=== PATIENT | female | born 1970 | race American Indian/Alaskan Native ===

== ENCOUNTER 2018-07-04 20:13 | Emergency (ER) | payer BC ==
--- NOTE | 2018-07-05 | Emergency Department Report ---
ED Headache HPI - General Chief Complaint: Headache Stated Complaint: HEADACHE Time Seen by Provider: 07/05/18 00:00 - History of Present Illness Allergies/Adverse Reactions: Allergies Penicillins Allergy (Verified 01/27/15 01:40) Unknown Home Medications: Ambulatory Orders Famotidine [Pepcid] 20 mg PO BID #10 tablet 01/27/15 Naproxen [Naprosyn TAB] 500 mg PO BID #60 tablet 01/27/15 Clonidine HCl [Kapvay] 0.1 mg PO BID #60 tab.er.12h 07/05/18 ED Review of Systems ROS: Stated complaint: HEADACHE Other details as noted in HPI ED Past Medical Hx - Past Medical History Previous Medical History?: No Hx Headaches / Migraines: Yes - Surgical History Past Surgical History?: Yes Additional Surgical History: carpal tunnel - Social History Smoking Status: Current Every Day Smoker Substance Use Type: None - Medications Home Medications: Home Medications Medication Instructions Recorded Confirmed Last Taken Type Famotidine [Pepcid] 20 mg PO BID #10 tablet 01/27/15 Unknown Rx Naproxen [Naprosyn TAB] 500 mg PO BID #60 tablet 01/27/15 Unknown Rx Clonidine HCl [Kapvay] 0.1 mg PO BID #60 tab.er.12h 07/05/18 Unknown Rx ED Physical Exam - General Limitations: No Limitations ED Course Vital Signs 07/04/18 07/05/18 07/05/18 20:17 00:40 00:48 Temperature 98.8 F 98.2 F Pulse Rate 93 H 75 Respiratory 18 16 Rate Blood Pressure 164/105 Blood Pressure 174/106 [Left] O2 Sat by Pulse 98 98 98 Oximetry 07/05/18 07/05/18 07/05/18 01:00 01:07 01:30 Temperature Pulse Rate 74 Respiratory Rate Blood Pressure 164/104 164/104 164/104 Blood Pressure [Left] O2 Sat by Pulse 99 99 Oximetry 07/05/18 02:00 Temperature Pulse Rate Respiratory Rate Blood Pressure 98/61 Blood Pressure [Left] O2 Sat by Pulse 98 Oximetry ED Medical Decision Making - Lab Data Result diagrams: 07/05/18 00:18 07/05/18 00:18 Critical care attestation.: If time is entered above; I have spent that time in minutes in the direct care of this critically ill patient, excluding procedure time. ED Disposition Clinical Impression: Hypertension Qualifiers: Hypertension type: unspecified Qualified Code(s): I10 - Essential (primary) hypertension Headache Qualifiers: Headache type: unspecified Headache chronicity pattern: unspecified pattern Intractability: not intractable Qualified Code(s): R51 - Headache Disposition: DC-01 TO HOME OR SELFCARE Is pt being admited?: No Does the pt Need Aspirin: No Condition: Stable Instructions: Hypertension (ED), Acute Headache (ED) Additional Instructions: Please follow up with your primary doctor or Dr Cr on Saturday. Return to the ED if your condition worsens. Prescriptions: Clonidine HCl [Kapvay] 0.1 mg PO BID #60 tab.er.12h Referrals: PRIMARY CARE, [Primary Care Provider] - 3-5 Days EDWIN CR DO [Staff Physician] - 3-5 Days Time of Disposition: 04:00
[2018-07-05] MEDS ORDERED: REGLAN IV ONE (00:13)
[2018-07-05] MEDS ORDERED: CATAPRES PO ONE (00:14)
[2018-07-05] MEDS ORDERED: TYLENOL PO ONE (00:31)
[2018-07-05 00:44] LABS: Basophils % (Auto) 0.8 % (0.0-1.8); Eosinophils # (Auto) 0.4 K/mm3 (0.0-0.4); Eosinophils % (Auto) 6.5 % (0.0-4.3); Lymphocytes % (Auto) 34.4 % (13.4-35.0); Mean Corpuscular HGB Conc 30 % (30-34); Mean Corpuscular Volume 77 fl (79-97); Monocytes # (Auto) 0.5 K/mm3 (0.0-0.8); Monocytes % (Auto) 8.6 % (0.0-7.3); Platelet Count 343 K/mm3 (140-440); Red Blood Count 4.52 M/mm3 (3.65-5.03); Red Cell Distribution Width 17.6 % (13.2-15.2)
[2018-07-05 00:47] LABS: Hematocrit 34.7 % (30.3-42.9); Hemoglobin 10.5 gm/dl (10.1-14.3); Mean Corpuscular Hemoglobin 23 pg (28-32)
[2018-07-05 00:55] LABS: INR 0.88 (0.87-1.13); Partial Thromboplastin Time 25.6 Sec. (24.2-36.6)
[2018-07-05 01:00] LABS: Alanine Aminotransferase 14 units/L (7-56); Albumin 4.4 g/dL (3.9-5); BUN/Creatinine Ratio 27; Blood Urea Nitrogen 16 mg/dL (7-17); Calcium 9.5 mg/dL (8.4-10.2); Hemolysis Index 6
[2018-07-05] MEDS ORDERED: K-DUR PO ONE (01:13)
[2018-07-05 01:40] LABS: Amorphous Crystals,Urine 1+; Bilirubin,Urine NEG (Negative); Blood,Urine NEG (Negative); Color,Urine Yellow (Yellow); Mucus,Urine 1+ /HPF; Protein,Urine <15 mg/dL mg/dL (Negative)
[2018-07-05 01:46] LABS: HCG Qualitative,Urine Negative (Negative)
--- NOTE | 2018-07-05 03:42 | Cat Scan Report ---
FINAL REPORT PROCEDURE: CT HEAD/BRAIN WO CON TECHNIQUE: Computerized tomography of the head was performed without contrast material. HISTORY: Headache COMPARISON: No prior studies are available for comparison. FINDINGS: Skull and scalp: Normal. Paranasal sinuses: Normal. Ventricles and subarachnoid spaces: Normal. Cerebrum: No evidence of hemorrhage, acute infarction or mass . Cerebellum and brainstem: No evidence of hemorrhage, acute infarction or mass. Vasculature: Normal. Comments: None. IMPRESSION: Normal Examination
[2018-07-05 04:03] VITALS: BP 129/88
== END 2018-07-05 04:12 | disposition home or self-care (01) ==
LOC: ED 20:13
DX: I10 Essential (primary) hypertension (principal); G43.909 Migraine, unspecified, not intractable, without status migrainosus; F17.200 Nicotine dependence, unspecified, uncomplicated; Z79.899 Other long term (current) drug therapy; Z88.0 Allergy status to penicillin
CPT/HCPCS: 36415; 70450; 80053; 81001; 81025; 85025; 85610; 85730; 99284; J2765; 96374

== ENCOUNTER 2020-03-28 18:55 | Emergency (ER) | payer BC, MEDICAID ==
[2020-03-28 19:17] VITALS: BP 141/92
--- NOTE | 2020-03-28 20:08 | Event Note ---
ED Screening Note Date of service: 03/28/20 Time: 20:06 ED Screening Note: Patient complains of abdominal bloating and discomfort x this morning She denies any fever/chills/sweats or history of abdominal surgeries She states the pain radiates to her right flank there is mild positive right CVA tenderness on exam She denies any dysuria/hematuria/urinary frequency or history of kidney stones This initial assessment/diagnostic orders/clinical plan/treatment(s) is/are subject to change based on patients health status, clinical progression and re- assessment by fellow clinical providers in the ED. Further treatment and workup at subsequent clinical providers discretion. Patient/guardian urged not to elope from the ED as their condition may be serious if not clinically assessed and managed. Initial orders include: Labs
[2020-03-28 20:45] LABS: Basophils # (Auto) 0.1 K/mm3 (0.0-0.1); Basophils % (Auto) 1.1 % (0.0-1.8); Eosinophils # (Auto) 0.3 K/mm3 (0.0-0.4); Eosinophils % (Auto) 4.5 % (0.0-4.3); Hematocrit 42.3 % (30.3-42.9); Hemoglobin 14.5 gm/dl (10.1-14.3); Lymphocytes # (Auto) 1.8 K/mm3 (1.2-5.4); Mean Corpuscular HGB Conc 34 % (30-34); Mean Corpuscular Volume 92 fl (79-97); Monocytes # (Auto) 0.5 K/mm3 (0.0-0.8); Monocytes % (Auto) 8.6 % (0.0-7.3); Platelet Count 272 K/mm3 (140-440); Red Blood Count 4.62 M/mm3 (3.65-5.03); Red Cell Distribution Width 13.4 % (13.2-15.2)
[2020-03-28 21:08] LABS: Bacteria,Urine 1+ /HPF (Negative); Bilirubin,Urine NEG (Negative); Blood,Urine NEG (Negative); Color,Urine Yellow (Yellow); Mucus,Urine FEW /HPF; Protein,Urine <15 mg/dL mg/dL (Negative); Urobilinogen,Urine < 2.0 mg/dL (<2.0)
[2020-03-28 21:25] LABS: Alanine Aminotransferase 13 units/L (7-56); Albumin 4.6 g/dL (3.9-5); BUN/Creatinine Ratio 17; Blood Urea Nitrogen 12 mg/dL (7-17); Calcium 10.5 mg/dL (8.4-10.2); Hemolysis Index 5
--- NOTE | 2020-03-28 21:33 | Emergency Department Report ---
ED General Adult HPI - General Chief complaint: Abdominal Pain Stated complaint: STOMACH PAIN Time Seen by Provider: 03/28/20 20:02 Source: patient Mode of arrival: Ambulatory Limitations: No Limitations - History of Present Illness Initial comments: 49-year-old -[place] female presents to the emergency room for 1 day history of abdominal bloating and tightness denies any pain. Patient reports her last bowel movement was yesterday. She denies any nausea no vomiting denies feeling sick. She denies any dysuria fever chills or vaginal discharge or vaginal bleeding. Patient does admit to eating cabbage yesterday. Patient has a past medical history of hypertension and hypothyroidism. Patient is currently on amlodipine and levothyroxine. Patient's had a tubal ligation and reports she is in menopause. -: This morning Location: abdomen Radiation: non-radiation Severity scale (0 -10): 7 Quality: other (Bloating and tightness) Improves with: none Worsens with: none Associated Symptoms: denies other symptoms Treatments Prior to Arrival: none - Related Data Home Medications Medication Instructions Recorded Confirmed Last Taken Levothyroxine [Synthroid] 50 mcg PO QAM 09/16/18 09/16/18 09/15/18 amLODIPine [Norvasc] 10 mg PO DAILY 09/16/18 09/16/18 09/15/18 Previous Rx's Medication Instructions Recorded Last Taken Type Polyethylene Glycol 3350 [Miralax] 17 gm PO DAILY #119 gram 03/28/20 Unknown Rx Allergies Allergy/AdvReac Type Severity Reaction Status Date / Time Penicillins Allergy Unknown Verified 01/27/15 01:40 ED Review of Systems ROS: Stated complaint: STOMACH PAIN Other details as noted in HPI Comment: All other systems reviewed and negative ED Past Medical Hx - Past Medical History Previous Medical History?: Yes Hx Hypertension: Yes Hx Headaches / Migraines: Yes Additional medical history: Anemia. Hypothyroid - Surgical History Past Surgical History?: Yes Additional Surgical History: carpal tunnel. tubal ligation - Social History Smoking Status: Never Smoker - Medications Home Medications: Home Medications Medication Instructions Recorded Confirmed Last Taken Type Levothyroxine [Synthroid] 50 mcg PO QAM 09/16/18 09/16/18 09/15/18 History amLODIPine [Norvasc] 10 mg PO DAILY 09/16/18 09/16/18 09/15/18 History Polyethylene Glycol 3350 [Miralax] 17 gm PO DAILY #119 gram 03/28/20 Unknown Rx ED Physical Exam - General Limitations: No Limitations General appearance: alert, in no apparent distress - Head Head exam: Present: atraumatic, normocephalic - Eye Eye exam: Present: normal appearance - ENT ENT exam: Present: mucous membranes moist - Neck Neck exam: Present: normal inspection - Respiratory Respiratory exam: Present: normal lung sounds bilaterally. Absent: respiratory distress - Cardiovascular Cardiovascular Exam: Present: regular rate, normal rhythm. Absent: systolic murmur, diastolic murmur, rubs, gallop - GI/Abdominal GI/Abdominal exam: Present: soft, normal bowel sounds - Extremities Exam Extremities exam: Present: normal inspection - Back Exam Back exam: Present: normal inspection - Neurological Exam Neurological exam: Present: alert, oriented X3 - Psychiatric Psychiatric exam: Present: normal affect, normal mood - Skin Skin exam: Present: warm, dry, intact, normal color. Absent: rash ED Course Vital Signs 03/28/20 03/28/20 19:16 20:03 Temperature 98.2 F 98.9 F Pulse Rate 82 79 Respiratory 16 18 Rate Blood Pressure 141/92 141/92 O2 Sat by Pulse 98 100 Oximetry ED Medical Decision Making - Lab Data Result diagrams: 03/28/20 20:13 03/28/20 20:13 Laboratory Tests 03/28/20 03/28/20 03/28/20 20:13 20:13 Unknown WBC 5.8 RBC 4.62 Hgb 14.5 H Hct 42.3 MCV 92 MCH 32 MCHC 34 RDW 13.4 Plt Count 272 Lymph % (Auto) 32.0 [place] % (Auto) 8.6 H Eos % (Auto) 4.5 H Baso % (Auto) 1.1 Lymph # 1.8 [place] # 0.5 Eos # 0.3 Baso # 0.1 Seg Neutrophils % 53.8 Seg Neutrophils # 3.1 Sodium 142 Potassium 3.9 Chloride 103.9 Carbon Dioxide 26 Anion Gap 16 BUN 12 Creatinine 0.7 Estimated GFR > 60 BUN/Creatinine Ratio 17 Glucose 93 Calcium 10.5 H Total Bilirubin 0.40 AST 19 ALT 13 Alkaline Phosphatase 86 Total Protein 8.1 Albumin 4.6 Albumin/Globulin Ratio 1.3 Lipase 28 Urine Color Yellow Urine Turbidity Clear Urine pH 5.0 Ur Specific [place] 1.017 Urine Protein <15 mg/dl Urine Glucose (UA) Neg Urine Ketones Neg Urine Blood Neg Urine Nitrite Neg Urine Bilirubin Neg Urine Urobilinogen < 2.0 Ur Leukocyte Esterase Neg Urine WBC (Auto) 1.0 Urine RBC (Auto) 2.0 U Epithel Cells (Auto) 7.0 Urine Bacteria (Auto) 1+ Urine Mucus Few - Radiology Data Radiology results: report reviewed Referring Physician:BASHIR WILEYPatient Name:ANJEL THOMASHPatient ID:[id number] of :[id number]:FemaleAccession:[id number] Date:[id number] Status:Finalized Findings [facility] [address] [place] [address] XRay Report Signed Patient: ANJEL SCHAEFFER MR#: [id number] : 1970 Acct:[id number] Age/Sex: 49 / F ADM Date: 03/28/20 Loc: ED Attending Dr: Ordering Physician: GEOVANNI MARINELLI Date of Service: 03/28/20 Procedure(s): XR abdomen 1V ap Accession Number(s): [id number] cc: GEOVANNI MARINELLI Fluoro Time In Minutes: ABDOMEN AP SUPINE 2153 INDICATION: Abdominal bloating and tightness COMPARISON: None available. FINDINGS: No evidence of bowel obstruction is seen. Calcification of the pelvis probably are vascular. Possible mild right-sided constipation is noted. Signer Name: Mario Hensley MD Signed: 03/28/2020 10:11 PM Workstation Name: [id number] Transcribed By: GJ Dictated By: Mario Hensley MD Electronically Authenticated By: Mario Hensley MD Signed Date/Time: 03/28/202210 DD/ 10 TD/TT: - Medical Decision Making 49-year-old -[place] female presents to the emergency room for 1 day history of abdominal bloating and tightness denies any pain. Patient reports her last bowel movement was yesterday. She denies any nausea no vomiting denies feeling sick. She denies any dysuria fever chills or vaginal discharge or vaginal bleeding. Patient does admit to eating cabbage yesterday. Patient has a past medical history of hypertension and hypothyroidism. Patient is currently on amlodipine and levothyroxine. Patient's had a tubal ligation and reports she is in menopause. KUB shows mild constipation on the right. Labs are stable. Patient be discharged home on MiraLAX. Critical care attestation.: If time is entered above; I have spent that time in minutes in the direct care of this critically ill patient, excluding procedure time. ED Disposition Clinical Impression: Constipation Qualifiers: Constipation type: unspecified constipation type Qualified Code(s): K59.00 - Constipation, unspecified Disposition: - TO HOME OR SELFCARE Is pt being admited?: No Does the pt Need Aspirin: No Condition: Stable Instructions: Abdominal Pain (ED), Constipation (ED) Additional Instructions: Use MiraLAX as prescribed until you start having normal bowel movements. And then as needed. Follow-up with your primary care provider. X-ray showed you have constipation. All labs are stable. Prescriptions: Polyethylene Glycol 3350 [Miralax] 17 gm PO DAILY #119 gram Referrals: PRIMARY CARE, [Primary Care Provider] - 3-5 Days
--- NOTE | 2020-03-28 22:16 | XRay Report ---
ABDOMEN AP SUPINE 2152 INDICATION: Abdominal bloating and tightness COMPARISON: None available. FINDINGS: No evidence of bowel obstruction is seen. Calcification of the pelvis probably are vascular . Possible mild right-sided constipation is noted. Signer Name: Mario Hensley MD Signed: 03/28/2020 10:11 PM Workstation Name: [id number]
== END 2020-03-28 22:31 | disposition home or self-care (01) ==
LOC: ED 18:55
DX: K59.00 Constipation, unspecified (principal); I10 Essential (primary) hypertension; G43.909 Migraine, unspecified, not intractable, without status migrainosus; Z98.51 Tubal ligation status; Z98.890 Other specified postprocedural states; Z79.899 Other long term (current) drug therapy; Z88.0 Allergy status to penicillin
CPT/HCPCS: 36415; 74018; 80053; 81001; 83690; 85025

== ENCOUNTER 2020-10-09 19:00 | Emergency (ER) | payer MEDICAID ==
[2020-10-09 20:11] VITALS: BP 119/83
--- NOTE | 2020-10-09 20:17 | Emergency Department Report ---
- General Chief Complaint: Dyspnea/Respdistress Stated Complaint: CHEST CONGESTION Time Seen by Provider: 10/09/20 20:09 Source: patient Mode of arrival: Ambulatory Limitations: No Limitations - History of Present Illness Initial Comments: Patient is a 50-year-old female presents emergency room with complaints of chest congestion that began 2 days ago. She has associated cough, fatigue, chest discomfort after frequent coughing. She denies any fever, nausea, vomiting, diarrhea, shortness of breath, leg swelling, body aches. She denies any recent surgery, hormone use, sick contacts. She states that she has not received COVID-19 testing. She states that she did go to a [facility] in [place]. She has a past medical history of hypertension and hypothyroidism. Allergy to penicillin. She is currently menopausal. she states she has been taking dayquil. - Related Data Home Medications Medication Instructions Recorded Confirmed Last Taken Levothyroxine [Synthroid] 50 mcg PO QAM 09/16/18 09/16/18 09/15/18 amLODIPine [Norvasc] 10 mg PO DAILY 09/16/18 09/16/18 09/15/18 Previous Rx's Medication Instructions Recorded Last Taken Type Polyethylene Glycol 3350 [Miralax] 17 gm PO DAILY #119 gram 03/28/20 Unknown Rx Benzonatate [Tessalon Perles] 100 mg PO Q8HR PRN #12 capsule 10/09/20 Unknown Rx Naproxen [EC-Naproxen] 500 mg PO BID PRN #14 tablet.dr 10/09/20 Unknown Rx guaiFENesin ER [Mucinex ER] 600 mg PO BID 7 Days #14 tablet.er 10/09/20 Unknown Rx Allergies Allergy/AdvReac Type Severity Reaction Status Date / Time Penicillins Allergy Unknown Verified 01/27/15 01:40 ED Review of Systems ROS: Stated complaint: CHEST CONGESTION Other details as noted in HPI Comment: All other systems reviewed and negative ED Past Medical Hx - Past Medical History Previous Medical History?: Yes Hx Hypertension: Yes Hx Headaches / Migraines: Yes Additional medical history: Anemia. Hypothyroid - Surgical History Past Surgical History?: Yes Additional Surgical History: carpal tunnel. tubal ligation - Social History Smoking Status: Never Smoker Substance Use Type: None - Medications Home Medications: Home Medications Medication Instructions Recorded Confirmed Last Taken Type Levothyroxine [Synthroid] 50 mcg PO QAM 09/16/18 09/16/18 09/15/18 History amLODIPine [Norvasc] 10 mg PO DAILY 09/16/18 09/16/18 09/15/18 History Polyethylene Glycol 3350 [Miralax] 17 gm PO DAILY #119 gram 03/28/20 Unknown Rx Benzonatate [Tessalon Perles] 100 mg PO Q8HR PRN #12 capsule 10/09/20 Unknown Rx Naproxen [EC-Naproxen] 500 mg PO BID PRN #14 tablet.dr 10/09/20 Unknown Rx guaiFENesin ER [Mucinex ER] 600 mg PO BID 7 Days #14 tablet.er 10/09/20 Unknown Rx ED Physical Exam - General Limitations: No Limitations General appearance: alert, in no apparent distress - Head Head exam: Present: atraumatic, normocephalic - Eye Eye exam: Present: normal appearance - ENT ENT exam: Present: mucous membranes moist - Respiratory Respiratory exam: Present: normal lung sounds bilaterally. Absent: respiratory distress, wheezes, rales, rhonchi, stridor, chest wall tenderness, accessory muscle use, decreased breath sounds, prolonged expiratory - Cardiovascular Cardiovascular Exam: Present: regular rate, normal rhythm, normal heart sounds. Absent: systolic murmur, diastolic murmur, rubs, gallop - Neurological Exam Neurological exam: Present: alert, oriented X3 - Psychiatric Psychiatric exam: Present: normal affect, normal mood - Skin Skin exam: Present: warm, dry, intact ED Course Vital Signs 10/09/20 20:06 Temperature 98.1 F Pulse Rate 86 Respiratory 16 Rate Blood Pressure 119/83 O2 Sat by Pulse 99 Oximetry ED Medical Decision Making - Radiology Data Radiology results: report reviewed Ordering Physician: GEOVANNI KELLY Date of Service: 10/09/20 Procedure(s): XR chest routine 2V Accession Number(s): [id number] cc: GEOVANNI KELLY Fluoro Time In Minutes: CHEST 2 VIEWS INDICATION: cough, chest congestion. COMPARISON: None. FINDINGS: Support devices: None. Heart: Within normal limits. Lungs/Pleura: No acute air space or interstitial disease. No significant pleural effusion. IMPRESSION: No acute findings. Signer Name: Yogi Hayes MD Signed: 10/09/2020 8:52 PM Workstation Name: [id number] Transcribed By: LISSA Dictated By: Yogi Hayes MD Electronically Authenticated By: Yogi Hayes MD Signed Date/Time: 10/09/202051 DD/ 50 TD/TT: - Medical Decision Making Patient is a 50-year-old female presents emergency room with complaints of chest congestion that began 2 days ago. She has associated cough, fatigue, chest discomfort after frequent coughing. She denies any fever, nausea, vomiting, diarrhea, shortness of breath, leg swelling, body aches. She denies any recent surgery, hormone use, sick contacts. She states that she has not received COVID-19 testing. She states that she did go to a [facility] in [place]. She has a past medical history of hypertension and hypothyroidism. Allergy to penicillin. She is currently menopausal. she states she has been taking dayquil. Vitals are normal. Breath sounds are clear bilaterally, no wheezing, no rales, no rhonchi. CXR: IMPRESSION: No acute findings. discussed all results with patient and answered questions. Patient is presenting with the symptoms during COVID-19 pandemic, discussed COVID-19 with patient, discussed strict return precautions, discussed outpatient testing, discussed self quarantine. Patient does not meet hospital criteria for COVID-19 admission or for COVID-19 hospital testing. Patient given prescription for naproxen, Mucinex, tessalon perles. advised pt please take medication as prescribed. Please increase your fluid intake over the next several days. Follow-up with a primary care doctor for reexamination. Return to emergency room immediately for any new or worsening symptoms including but not limited to difficulty breathing, shortness of breath, severe chest pain, unable to tolerate by mouth intake, etc. Please self quarantine for 10 days from the onset of your symptoms. Please do not go out in public. If you are around others at home please wear a mask. If you need to cough or sneeze please do so in a napkin and immediately throw it away and immediately wash your hands. Wash your hands frequently. Wipe everything down. Recommend for you to get COVID-19 testing, may have this done at primary care doctor, health department, [facility], etc Critical care attestation.: If time is entered above; I have spent that time in minutes in the direct care of this critically ill patient, excluding procedure time. ED Disposition Clinical Impression: Viral URI Disposition: DC-01 TO HOME OR SELFCARE Is pt being admited?: No Does the pt Need Aspirin: No Condition: Stable Instructions: Viral Respiratory Infection Additional Instructions: please take medication as prescribed. Please increase your fluid intake over the next several days. Follow-up with a primary care doctor for reexamination. Return to emergency room immediately for any new or worsening symptoms including but not limited to difficulty breathing, shortness of breath, severe chest pain, unable to tolerate by mouth intake, etc. Please self quarantine for 10 days from the onset of your symptoms. Please do not go out in public. If you are around others at home please wear a mask. If you need to cough or sneeze please do so in a napkin and immediately throw it away and immediately wash your hands. Wash your hands frequently. Wipe everything down. Recommend for you to get COVID-19 testing, may have this done at primary care doctor, health department, [facility], etc Your chest x-ray shows no signs of pneumonia Prescriptions: Naproxen [EC-Naproxen] 500 mg PO BID PRN #14 tablet.dr DUENAS Reason: pain guaiFENesin ER [Mucinex ER] 600 mg PO BID 7 Days #14 tablet.er Benzonatate [Tessalon Perles] 100 mg PO Q8HR PRN #12 capsule PRN Reason: cough Referrals: KWADWO RICK MD [Staff Physician] - 2-3 Days [facility] [Provider Group] - 2-3 Days Forms: Work/School Release Form(ED) Time of Disposition: 21:00 Print Language: KOREAN
--- NOTE | 2020-10-09 20:56 | XRay Report ---
CHEST 2 VIEWS INDICATION: cough, chest congestion. COMPARISON: None. FINDINGS: Support devices: None. Heart: Within normal limits. Lungs/Pleura: No acute air space or interstitial disease. No significant pleural effusion. IMPRESSION: No acute findings. Signer Name: Yogi Hayes MD Signed: 10/09/2020 8:52 PM Workstation Name: [id number]
== END 2020-10-09 21:26 | disposition home or self-care (01) ==
LOC: ED 19:00
DX: J06.9 Acute upper respiratory infection, unspecified (principal); B97.89 Other viral agents as the cause of diseases classified elsewhere; I10 Essential (primary) hypertension; G43.909 Migraine, unspecified, not intractable, without status migrainosus; Z98.890 Other specified postprocedural states; Z79.899 Other long term (current) drug therapy; Z88.0 Allergy status to penicillin
CPT/HCPCS: 71046

== ENCOUNTER 2021-04-01 05:51 | Emergency (ER) | payer MEDICAID ==
--- NOTE | 2021-04-01 06:59 | Emergency Department Report ---
ED Extremity Problem HPI - General Chief complaint: Extremity Injury, Lower Stated complaint: PAIN IN BOTH HIPS Time Seen by Provider: 04/01/21 06:58 Source: patient Mode of arrival: Ambulatory Limitations: No Limitations - History of Present Illness Initial comments: 50-year-old -Indian female presents to the emergency room complaining of bilateral hip pain x1 month. Patient states that she feels like it is getting worse. Patient states the pain is worse when she gets up from sitting down or lying on her hips. Patient reports it feels like it is her joints. She denies any injury or trauma. She has taken intermittent ibuprofen. She states that this is just feels soreness. She has not followed up with her primary care provider which is [facility] mery hayes. Complaint: joint paint Onset/Timin -: month(s) Location: left, right, other (hip) History of Same: No -: Yes arthralgia Severity scale (0 -10): 6 Quality: aching, dull Consistency: intermittent Improves with: movement Worsens with: other (Getting up from a sitting position, landing on her hips) Associated Symptoms: denies other symptoms - Related Data Home Medications Medication Instructions Recorded Confirmed Last Taken Levothyroxine [Synthroid] 50 mcg PO QAM 09/16/18 09/16/18 09/15/18 amLODIPine [Norvasc] 10 mg PO DAILY 09/16/18 09/16/18 09/15/18 Previous Rx's Medication Instructions Recorded Last Taken Type Polyethylene Glycol 3350 [Miralax] 17 gm PO DAILY #119 gram 03/28/20 Unknown Rx Benzonatate [Tessalon Perles] 100 mg PO Q8HR PRN #12 capsule 10/09/20 Unknown Rx Naproxen [EC-Naproxen] 500 mg PO BID PRN #14 tablet.dr 10/09/20 Unknown Rx guaiFENesin ER [Mucinex ER] 600 mg PO BID 7 Days #14 tablet.er 10/09/20 Unknown Rx Meloxicam [Mobic] 7.5 mg PO QDAY 30 Days #30 tablet 04/01/21 Unknown Rx Allergies Allergy/AdvReac Type Severity Reaction Status Date / Time Penicillins Allergy Unknown Verified 01/27/15 01:40 ED Review of Systems ROS: Stated complaint: PAIN IN BOTH HIPS Other details as noted in HPI Comment: All other systems reviewed and negative ED Past Medical Hx - Past Medical History Hx Hypertension: Yes Hx Headaches / Migraines: Yes Additional medical history: Hypothyroid - Surgical History Additional Surgical History: carpal tunnel. tubal ligation - Social History Smoking Status: Never Smoker Substance Use Type: Alcohol - Medications Home Medications: Home Medications Medication Instructions Recorded Confirmed Last Taken Type Levothyroxine [Synthroid] 50 mcg PO QAM 09/16/18 09/16/18 09/15/18 History amLODIPine [Norvasc] 10 mg PO DAILY 09/16/18 09/16/18 09/15/18 History Polyethylene Glycol 3350 [Miralax] 17 gm PO DAILY #119 gram 03/28/20 Unknown Rx Benzonatate [Tessalon Perles] 100 mg PO Q8HR PRN #12 capsule 10/09/20 Unknown Rx Naproxen [EC-Naproxen] 500 mg PO BID PRN #14 tablet. 10/09/20 Unknown Rx guaiFENesin ER [Mucinex ER] 600 mg PO BID 7 Days #14 tablet.er 10/09/20 Unknown Rx Meloxicam [Mobic] 7.5 mg PO QDAY 30 Days #30 tablet 04/01/21 Unknown Rx ED Physical Exam - General Limitations: No Limitations General appearance: alert, in no apparent distress - Head Head exam: Present: atraumatic, normocephalic - Eye Eye exam: Present: normal appearance - ENT ENT exam: Present: normal external ear exam - Neck Neck exam: Present: normal inspection, full ROM - Respiratory Respiratory exam: Absent: accessory muscle use - Cardiovascular Cardiovascular Exam: Present: regular rate - Expanded Lower Extremity Exam Left Hip exam: Present: full ROM, pelvic stability. Absent: tenderness, swelling, abrasion, laceration, ecchymosis, deformity, crepidus, dislocation, erythema, shortening Upper Leg exam: Present: normal inspection, full ROM. Absent: tenderness, swelling Knee exam: Present: normal inspection, full ROM. Absent: tenderness, swelling Lower Leg exam: Present: normal inspection, full ROM. Absent: tenderness, swelling Ankle exam: Present: normal inspection, full ROM. Absent: tenderness, swelling Neuro vascular tendon exam: Present: no vascular compromise Right Hip exam: Present: normal inspection, full ROM, pelvic stability. Absent: tenderness, swelling, abrasion, ecchymosis, deformity, crepidus, dislocation, erythema, shortening Upper Leg exam: Present: normal inspection, full ROM. Absent: tenderness, swelling Knee exam: Present: normal inspection, full ROM. Absent: tenderness, swelling, abrasion Lower Leg exam: Present: normal inspection, full ROM. Absent: tenderness, swelling Foot/Toe exam: Present: normal inspection, full ROM. Absent: tenderness, swelling Neuro vascular tendon exam: Present: no vascular compromise Gait: Positive: observed and normal - Back Exam Back exam: Present: normal inspection, full ROM. Absent: tenderness - Neurological Exam Neurological exam: Present: alert, oriented X3, normal gait - Psychiatric Psychiatric exam: Present: normal affect, normal mood - Skin Skin exam: Present: warm, dry, intact, normal color. Absent: rash ED Course Vital Signs 04/01/21 05:56 Temperature 98.7 F Pulse Rate 97 H Respiratory 18 Rate Blood Pressure 129/81 O2 Sat by Pulse 94 Oximetry ED Medical Decision Making - Medical Decision Making 50-year-old -Indian female presents to the emergency room complaining of bilateral hip pain x1 month. Patient states that she feels like it is getting worse. Patient states the pain is worse when she gets up from sitting down or lying on her hips. Patient reports it feels like it is her joints. She denies any injury or trauma. She has taken intermittent ibuprofen. She states that this is just feels soreness. She has not followed up with her primary care provider which is [facility]. Patient had full range of all joints no swelling no rashes appreciated. Patient is able to ambulate without discomfort or antalgic. Discussed with patient that she can try taking meloxicam and to follow-up with her primary care provider. At this time I do not feel x-rays are needed as patient has had no trauma vital signs are stable. Critical care attestation.: If time is entered above; I have spent that time in minutes in the direct care of this critically ill patient, excluding procedure time. ED Disposition Clinical Impression: Bilateral hip pain Disposition: - TO HOME OR SELFCARE Is pt being admited?: No Does the pt Need Aspirin: No Condition: Stable Instructions: Joint Pain, [id number] Additional Instructions: I recommend taking the meloxicam for pain management. You can try [id number] Aspercreme or Voltaren gel topical to your hips. Prescriptions: Meloxicam [Mobic] 7.5 mg PO QDAY 30 Days #30 tablet Referrals: Your, primary care provider [Other] - 3-5 Days
== END 2021-04-01 07:32 | disposition home or self-care (01) ==
LOC: ED 05:51
CPT/HCPCS: 99281